=== PATIENT | female | born 1940 | race Caucasian/White ===

== ENCOUNTER 2021-04-21 09:06 | Outpatient (REF) | payer SELFPAY ==
[2021-04-21 12:27] LABS: Abs Immature Grans 0.39 10^3/uL (0.0-0.06); Basophils % 0.7; Eosinophils % 0.8; HCT 28.1 % (36.0-46.0); HGB 8.2 g/dL (11.2-15.7); Immature Grans % 1.1; Lymphocytes % 5.9; MCH 27.2 pg (27.0-33.0); MCHC 29.2 % (32.0-36.0); MPV 11.6 fL (8.0-11.0); Monocytes % 2.7; Neutrophils % 88.8; Nucleated RBC 0 %; Platelet Count 499 10^3/uL (130-400); RBC 3.02 10^6/uL (3.93-5.22); RDW 18.3 % (11.7-14.6); RDW-SD 61.1 fL
[2021-04-21 12:41] LABS: ALT 25 U/L (14-59); AST 44 U/L (15-37); Albumin 2.5 g/dL (3.4-5.0); Alkaline Phosphatase 516 U/L (46-116); Anion Gap 9.5 mmol/L (3-11); BUN 25 mg/dL (7-18); Bilirubin, Direct 0.2 mg/dL (0.0-0.2); Bilirubin, Total 0.3 mg/dL (0.2-1.0); CO2 23.5 mmol/L (21.0-32.0); CREATININE 1.2 mg/dL (0.55-1.02); Calcium 8.8 mg/dL (8.5-10.1); Chloride 105 mmol/L (98-107); Estimated GFR 43.23 (mL/min/1.73m2); Glucose 91 mg/dL (74-106); Sodium 138 mmol/L (136-145); Total Protein 7.5 g/dL (6.4-8.2)
[2021-04-21 12:43] LABS: Absolute Basophil Count 0.25 10^3/uL (0.0-0.2); Absolute Eosinophil Count 0.28 10^3/uL (0.0-0.7); Absolute Lymphocyte Count 2.07 10^3/uL (1.2-3.4); Absolute Monocyte Count 0.95 10^3/uL (0.1-0.8); Absolute Neutrophil Count 31.12 10^3/uL (1.2-6.7)
[2021-04-21 12:49] LABS: Potassium 6.3 mmol/L (3.5-5.1)
[2021-04-21 12:51] LABS: Diff Comment Agrees w/ Instrument; WBC 35.04 10^3/uL (4.4-10.8)
[2021-04-21 12:52] LABS: Hypochromasia 2+
== END 2021-04-21 09:07 | disposition home or self-care (01) ==
LOC: LBN 09:06
PROVIDERS: PCP Family Medicine; Visit Provider Nurse Practitioner Family
DX: D72.9 Disorder of white blood cells, unspecified (principal); E87.8 Other disorders of electrolyte and fluid balance, not elsewhere classified
CPT/HCPCS: 80048; 80076; 83880; 85025